=== PATIENT | male | born 1945 | race Caucasian/White ===

== ENCOUNTER → 2021-03-23 14:37 | Outpatient (CLI) | payer MEDICARE, SELFPAY ==
--- NOTE | 2021-03-23 | DI.RAD.S_ITS ---
PROCEDURE: XR CHEST 2V INDICATIONS: Pleurodynia, rib pain left side under armpit, hx of GIST TECHNIQUE: 2 views of the chest were acquired. COMPARISON: None. FINDINGS: Surgical changes and devices: None. Lungs and pleura: Lungs are clear. No pleural effusions or pneumothorax. Mediastinum: Mediastinal contours are normal. Heart size is normal. Bones and chest wall: No suspicious bony abnormalities. Soft tissues appear unremarkable. IMPRESSION: No osseous abnormality. However, if concern persists, CT or bone scan is recommended. Dictated by: Britta Steve M.D. on 03/23/2021 at 15:57 Approved by: Britta Steve M.D. on 03/23/2021 at 15:57
== END ==
PROVIDERS: PCP Internal Medicine; Referring Provider Internal Medicine; Visit Provider Internal Medicine
DX: R07.81 Pleurodynia (principal)
CPT/HCPCS: 71046

== ENCOUNTER 2021-09-24 16:13 | Emergency (ER) | payer MEDICARE, SELFPAY ==
[2021-09-24] VITALS (8 sets, daily range): BP systolic 121–139; BP diastolic 56–63; PULSE 49–65; RESP 9–19; TEMP 36.6; O2SAT 99–100; BMI 18.6
--- NOTE | 2021-09-24 16:32 | DI.RAD.S_ITS ---
PROCEDURE: XR CHEST 1V INDICATIONS: chest pain TECHNIQUE: One view of the chest was acquired. COMPARISON: [facility], CR, XR CHEST 2V, 03/23/2021, 14:51. FINDINGS: Surgical changes and devices: None. Lungs and pleura: Lungs are clear. No pleural effusions or pneumothorax. Mediastinum: Mediastinal contours appear normal. Heart size is normal. Bones and chest wall: No suspicious bony lesions. Overlying soft tissues appear unremarkable. IMPRESSION: No acute cardiopulmonary pathology. Dictated by: Jarred Newman M.D. on 09/24/2021 at 16:54 Approved by: Jarred Newman M.D. on 09/24/2021 at 16:55
[2021-09-24 17:05] LABS: Add Manual Diff / Slide Review NO; Basophils Absolute Auto 0 /uL (0-100); Basophils Percent Auto 0.3 % (0-2); Eosinophils Absolute Auto 100 /uL (0-450); Eosinophils Percent Auto 1.5 % (2-4); Hemoglobin 13.2 g/dL (13.5-17.5); Lymphocytes Absolute Auto 900 /uL (1100-4500); Lymphocytes Percent Auto 17.6 % (25-40); Mean Corpuscular HGB Conc 33.7 % (30-36); Mean Corpuscular Hemoglobin 30.4 PG (26-34); Mean Corpuscular Volume 90.1 fL (80-100); Monocytes Absolute Auto 400 /uL (0-900); Monocytes Percent Auto 8.5 % (3-14); Neutrophils Absolute Auto 3600 /uL (1500-7000); Neutrophils Percent Auto 72.1 % (50-75); Platelet Count 311 X10^3/uL (150-400); Red Blood Cell Count 4.33 X10^6/uL (4.5-5.9); Red Cell Distribution Width 14.2 % (11.6-14.8); White Blood Cell Count 5.1 X10^3/uL (4.5-11.0)
[2021-09-24 17:16] LABS: Alanine Aminotransferase 17 IU/L (<50); Albumin 4.1 g/dL (3.5-5.0); Albumin Globulin Ratio 1.5 (1.0-2.8); Alkaline Phosphatase 80 U/L (38-126); Aspartate Aminotransferase 29 IU/L (17-59); BUN Creatinine Ratio 17.6 (6-22); Bilirubin Total 0.5 mg/dL (0.2-1.3); Blood Urea Nitrogen 21 mg/dL (9-20); COVID19 -Nasal RAPID Negative (Negative); Calcium 8.9 mg/dL (8.4-10.2); Carbon Dioxide 27 mmol/L (22-32); Chloride 105 mmol/L (98-107); Creatine Kinase 59 U/L (55-170); Estimated Glomerular Filt Rate 59.6 mL/min (>60); Globulin 2.7 g/dL (1.7-4.1); Glucose 88 mg/dL (80-110); HEMOLYSIS 17 (0-50); Lipase 191 U/L (23-300); Magnesium 2.2 mg/dL (1.6-2.3); Potassium 4.5 mmol/L (3.4-5.1); Sodium 136 mmol/L (137-145); Total Protein 6.8 g/dL (6.3-8.2)
[2021-09-24 17:26] LABS: Troponin I < 0.012 ng/mL (0.01-0.034)
--- NOTE | 2021-09-24 19:33 | ED.CHESTPAIN ---
HPI - Chest Pain General Chief Complaint: Chest Pain Stated Complaint: HEAVY BREATHING BURNING OF THE CHEST Time Seen by Provider: 09/24/21 19:33 Source: patient Mode of arrival: Ambulatory Limitations: no limitations Limitations: no limitations History of Present Illness HPI narrative: This is a 5-year-old male who comes with complaint of and heaviness in his chest and sensation of labored breathing. He states it is worse when he bends over and gets a burning sensation on the anterior wall. He denies rash or skin changes it is on both sides of the sternum. He denies any wheezing but felt labored. He has had some dry cough and some congestion and states he has been sensitive to dust and seasonal allergies they recently moved into a new house which has a lot of dust from boxes that have been stored for the past 5 years. He had an albuterol but it in 2014 so he did try it. He has not had any nausea vomiting, no new swelling, no issues with bowel movements. He has noted some nocturia but no other urinary changes. He states that his discomfort seems to be a little bit positional. Patient denies any past medical history initially but states he has had ablation x2 for atrial flutter. He is not anticoagulated. He has had prior appendectomy at age 10. 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 He had MRI and CT scans which were negative. He was supposed to have q.6 month surveillance but his last CT was in February. He has been referred to Oncology after moving here from [place] but has not seen them. He denies tobacco, occasional alcohol, no illicit. Related Data Previous Rx's Medication Instructions Recorded albuterol sulfate 90 mcg/actuation 2 puff INHALATION Q4-6H PRN #8.5 g 09/24/21 aerosol inhaler Allergies Allergy/AdvReac Type Severity Reaction Status Date / Time No Known Drug Allergies Allergy Verified 09/24/21 16:38 Review of Systems Review of Systems ROS Unobtainable: All systems reviewed & are unremarkable except as noted in HPI and below Patient History Social History Smoking Status: Never smoker Smoking Status: Never smoker alcohol intake frequency: holidays/special occasions only Substance Use Type: does not use Exam Narrative Exam Narrative: GENERAL: Alert and oriented x three, elderly male in mild distress. HEENT: Head normocephalic, atraumatic, EOMI, pupils reactive, face symmetric, moist mucous membranes NECK: Supple, full range of motion, patient has a circular hyperkeratotic raised lesion on his right posterior neck. Discussed with patient would recommend following up with primary care for Derm for biopsy. CARDIOVASCULAR: Regular rate and rhythm without murmurs, rubs or gallops. Non reproducible chest pain. No erythema or skin changes. RESPIRATORY: Breath sounds equal bilaterally, no wheezes rales or rhonchi. ABDOMEN: Soft, nontender. Nontender. No bruit. Normoactive bowel sounds all 4 quadrants. No guarding or rebound, rigidity, no mass : No CVA tenderness EXTREMITIES: Normal range of motion, no clubbing or edema. Neurovascularly intact. Normal range of motion. NEUROLOGICAL: Cranial nerves II through XII grossly intact. Moving all extremities SKIN: Warm, dry, no petechiae, no rashes or lesions. Initial Vital Signs Initial Vital Signs: Vital Signs Temperature 98 F 09/24/21 16:34 Pulse Rate 61 09/24/21 16:34 Respiratory Rate 17 09/24/21 16:34 Blood Pressure 139/63 09/24/21 16:34 Pulse Oximetry 100 09/24/21 16:34 Scores HEART Score Heart Score history: Slightly Suspicious Heart Score EKG: Non-Specific repolarization disturbance Heart Score Age: > or = 65 years old Heart Score risk factors: No known risk factors Heart Score troponin: < or = to normal limit Heart Score Total: 3 Course Orders Ordered: Discontinued Medications Aspirin (Aspirin 81 Mg Chew Tab) 324 mg PO NOW ONE Stop: 09/24/21 16:33 Last Admin: 09/24/21 16:58 Dose: Not Given Documented by: KARLEY Vital Signs Vital signs: Vital Signs - 8 hr 09/24/21 16:34 09/24/21 18:56 09/24/21 18:57 Temperature 98 F Pulse Rate 61 65 63 Respiratory Rate 17 Blood Pressure 139/63 139/62 Pulse Oximetry 100 99 100 09/24/21 19:00 09/24/21 19:01 09/24/21 19:30 Temperature Pulse Rate 63 59 L 49 L Respiratory Rate 19 11 L 9 L Blood Pressure Pulse Oximetry 100 100 100 09/24/21 19:31 Temperature Pulse Rate 51 L Respiratory Rate 13 Blood Pressure 122/58 L Pulse Oximetry 100 MDM - Chest Pain Lab Data Result diagrams: 09/24/21 16:45 09/24/21 16:45 Labs: Lab Results 09/24/21 09/24/21 09/24/21 Range/Units 16:45 16:45 16:45 WBC 5.1 (4.5-11.0) X10^3/uL RBC 4.33 L (4.5-5.9) X10^6/uL Hgb 13.2 L (13.5-17.5) g/dL Hct 39.0 L (41-53) % MCV 90.1 (80-100) fL MCH 30.4 (26-34) PG MCHC 33.7 (30-36) % RDW 14.2 (11.6-14.8) % Plt Count 311 (150-400) X10^3/uL Neut % (Auto) 72.1 (50-75) % Lymph % (Auto) 17.6 L (25-40) % [place] % (Auto) 8.5 (3-14) % Eos % (Auto) 1.5 L (2-4) % Baso % (Auto) 0.3 (0-2) % Neut # (Auto) 3600 (0586-2855) /uL Lymph # (Auto) 900 L (2899-8290) /uL [place] # (Auto) 400 (0-900) /uL Eos # (Auto) 100 (0-450) /uL Baso # (Auto) 0 (0-100) /uL Sodium 136 L (137-145) mmol/L Potassium 4.5 (3.4-5.1) mmol/L Chloride 105 (98-107) mmol/L Carbon Dioxide 27 (22-32) mmol/L BUN 21 H (9-20) mg/dL Creatinine 1.19 (0.66-1.25) mg/dL Estimated GFR 59.6 L (>60) mL/min BUN/Creatinine Ratio 17.6 (6-22) Glucose 88 (80-110) mg/dL Calcium 8.9 (8.4-10.2) mg/dL Magnesium 2.2 (1.6-2.3) mg/dL Total Bilirubin 0.5 (0.2-1.3) mg/dL AST 29 (17-59) IU/L ALT 17 (<50) IU/L Alkaline Phosphatase 80 (38-126) U/L Total Creatine Kinase 59 (55-170) U/L CK-MB (CK-2) TNP CK-MB (CK-2) Rel Index TNP Troponin I < 0.012 (0.01-0.034) ng/mL Total Protein 6.8 (6.3-8.2) g/dL Albumin 4.1 (3.5-5.0) g/dL Globulin 2.7 (1.7-4.1) g/dL Albumin/Globulin Ratio 1.5 (1.0-2.8) Lipase 191 (23-300) U/L SARS-CoV-2 (PCR) Negative (Negative) 09/24/21 Range/Units 19:00 WBC (4.5-11.0) X10^3/uL RBC (4.5-5.9) X10^6/uL Hgb (13.5-17.5) g/dL Hct (41-53) % MCV (80-100) fL MCH (26-34) PG MCHC (30-36) % RDW (11.6-14.8) % Plt Count (150-400) X10^3/uL Neut % (Auto) (50-75) % Lymph % (Auto) (25-40) % [place] % (Auto) (3-14) % Eos % (Auto) (2-4) % Baso % (Auto) (0-2) % Neut # (Auto) (5196-8950) /uL Lymph # (Auto) (3398-1547) /uL [place] # (Auto) (0-900) /uL Eos # (Auto) (0-450) /uL Baso # (Auto) (0-100) /uL Sodium (137-145) mmol/L Potassium (3.4-5.1) mmol/L Chloride (98-107) mmol/L Carbon Dioxide (22-32) mmol/L BUN (9-20) mg/dL Creatinine (0.66-1.25) mg/dL Estimated GFR (>60) mL/min BUN/Creatinine Ratio (6-22) Glucose (80-110) mg/dL Calcium (8.4-10.2) mg/dL Magnesium (1.6-2.3) mg/dL Total Bilirubin (0.2-1.3) mg/dL AST (17-59) IU/L ALT (<50) IU/L Alkaline Phosphatase (38-126) U/L Total Creatine Kinase (55-170) U/L CK-MB (CK-2) CK-MB (CK-2) Rel Index Troponin I < 0.012 (0.01-0.034) ng/mL Total Protein (6.3-8.2) g/dL Albumin (3.5-5.0) g/dL Globulin (1.7-4.1) g/dL Albumin/Globulin Ratio (1.0-2.8) Lipase (23-300) U/L SARS-CoV-2 (PCR) (Negative) Imaging Data Chest x-ray: Radiologist's Impression: [address] [address] XRay Report Signed Patient: Oj Mcknight MR#: [id number] : 1945 Acct:[id number] Age/Sex: 75 / M Date of Service: 09/24/21 Loc: ED Accession Number: [id number] ?? Procedure: XR chest 1V Ordering Provider: Leonie Harkins D.O. PROCEDURE:? XR CHEST 1V ? INDICATIONS:? chest pain ? TECHNIQUE:? One view of the chest was acquired.? ? COMPARISON:? [facility], , XR CHEST 2V, 03/23/2021, 14:51. ? FINDINGS:? ? Surgical changes and devices:? None.? ? Lungs and pleura:? Lungs are clear.? No pleural effusions or pneumothorax.? ? Mediastinum:? Mediastinal contours appear normal.? Heart size is normal.? ? Bones and chest wall:? No suspicious bony lesions.? Overlying soft tissues appear unremarkable.? ? IMPRESSION:? No acute cardiopulmonary pathology. ? ? Dictated by: Jarred Newman M.D. on 09/24/2021 at 16:54 ? ? Approved by: Jarred Newman M.D. on 09/24/2021 at 16:55?? ECG Data Attestation: I personally reviewed and interpreted this ECG as follows: Prior ECG tracings: not available for review Interpretation: Sinus bradycardia rate of 55, GA 168, QRS of 1 tendon QTC of 409, right axis with incomplete right bundle branch. No acute ST elevation depression appreciated. EKG 2 shows sinus bradycardia the rate of 48, GA 160, QRS of 108 QTC of 402, no acute ST elevation depression appreciated. Patient's EKG appears similar to earlier from today. MDM Narrative Medical decision making narrative: This is a 75-year-old male comes emergency department complaint of chest pain that he describes more as labored breathing. Patient has had dust exposure which he states causes symptoms at times. He had run out of his inhaler. He is not wheezy on exam but I am happy to refill. He has a right bundle-branch block and after discussion patient has had ablation x2 with no other obvious cardiac abnormalities. He has no prior EKGs for comparison but troponin is negative x2 with a mild anemia but no other major lab changes. Patient does note that he had a tumor removed from what sounds like his stomach he was not started on oral chemotherapy but has not followed up with his surveillance since February. Patient was given referral to Oncology as well as local primary care. 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 Discharge Plan Departure Patient Disposition: Home Clinical Impression: Atypical chest pain Instructions: DI for Atypical Chest Pain Activity Restrictions/Additional Instructions: Follow-up with primary care. Referral is included below if you are having difficulty finding an option you can call [phone] for primary care options. Referral is also included for Dr. Rosas with oncology. It is important that you get regular surveillance with your imaging for your prior tumor removal. The lesion on the back of your neck would benefit from being biopsied I believe. Can either follow-up with dermatology locally or primary care is included below. Also included is albuterol prescription. This was sent to [facility] [place]. Please return for fevers, new or worsening chest pain, shortness of breath, lightheadedness or passing out, persistent vomiting, persistent palpitations or fast heartbeat, new swelling in her extremities or other new or concerning symptoms. Prescriptions: New albuterol sulfate 90 mcg/actuation HFA aerosol inhaler 2 puff inhalation Q4-6H PRN (Reason: shortness of breath or wheezing) Qty: 8.5 0RF Referrals: Sunday Stauffer MD [Primary Care Provider] - Ravinder Rosas MD [Physician] - Steven Walters MD [Physician] -
[2021-09-24 19:35] LABS: Troponin I < 0.012 ng/mL (0.01-0.034)
== END 2021-09-24 20:20 | disposition home or self-care (01) ==
PROVIDERS: Emergency Medicine; Emergency Provider Emergency Medicine; PCP Internal Medicine
DX: R07.89 Other chest pain (principal); Z20.822 Contact with and (suspected) exposure to COVID-19
CPT/HCPCS: 36415; 71045; 80053; 82550; 83690; 83735; 84484; 85025; 87635; 93005; 93010; 99284; C9803

== ENCOUNTER → 2022-06-11 07:34 | Outpatient (CLI) | payer MEDICARE, SELFPAY ==
[2022-06-11 09:29] LABS: Add Manual Diff / Slide Review NO; Basophils Absolute Auto 0 /uL (0-100); Basophils Percent Auto 0.4 % (0-2); Eosinophils Absolute Auto 100 /uL (0-450); Eosinophils Percent Auto 1.8 % (2-4); Hematocrit 39.7 % (41-53); Hemoglobin 13.2 g/dL (13.5-17.5); Lymphocytes Absolute Auto 1000 /uL (1100-4500); Lymphocytes Percent Auto 22.4 % (25-40); Mean Corpuscular HGB Conc 33.3 % (30-36); Mean Corpuscular Hemoglobin 29.8 PG (26-34); Mean Corpuscular Volume 89.6 fL (80-100); Monocytes Absolute Auto 400 /uL (0-900); Monocytes Percent Auto 8.8 % (3-14); Neutrophils Absolute Auto 3000 /uL (1500-7000); Neutrophils Percent Auto 66.6 % (50-75); Platelet Count 316 X10^3/uL (150-400); Red Blood Cell Count 4.43 X10^6/uL (4.5-5.9); Red Cell Distribution Width 14.6 % (11.6-14.8); White Blood Cell Count 4.4 X10^3/uL (4.5-11.0)
[2022-06-11 09:30] LABS: Hemoglobin A1C% w Est Avg Glu 5.4 % (4.0-6.0)
[2022-06-11 10:16] LABS: BUN Creatinine Ratio 18.9 (6-22); Blood Urea Nitrogen 18 mg/dL (9-20); Calcium 8.8 mg/dL (8.4-10.2); Carbon Dioxide 32 mmol/L (22-32); Chloride 102 mmol/L (98-107); Cholesterol 162 mg/dL (140-199); Estimated Glomerular Filt Rate > 60 mL/min (>60); Glucose 93 mg/dL (80-110); HDL Cholesterol 62 mg/dL (40-60); HEMOLYSIS < 15 (0-50); LDL Cholesterol Calculated 92 mg/dL (<100); Potassium 4.1 mmol/L (3.4-5.1); Sodium 140 mmol/L (137-145); Triglycerides 41 mg/dL (35-150)
[2022-06-11 10:49] LABS: TSH w/ Reflex to FT4 3.54 uIU/mL (0.47-4.68)
[2022-06-11 11:06] LABS: Vitamin B12 342 pg/mL (239-931)
== END ==
PROVIDERS: PCP Family Medicine; Referring Provider Family Medicine; Visit Provider Family Medicine
DX: Z00.00 Encounter for general adult medical examination without abnormal findings (principal); G62.9 Polyneuropathy, unspecified; Z91.89 Other specified personal risk factors, not elsewhere classified; R73.01 Impaired fasting glucose
CPT/HCPCS: 36415; 80048; 80061; 82607; 83036; 84443; 85025

== ENCOUNTER 2022-12-25 10:54 | Emergency (ER) | payer MEDICARE, SELFPAY ==
[2022-12-25] VITALS (20 sets, daily range): BP systolic 115–148; BP diastolic 58–76; PULSE 40–63; RESP 17–34; TEMP 36.6; O2SAT 98–100; BMI 18.6
--- NOTE | 2022-12-25 11:05 | DI.RAD.S_ITS ---
PROCEDURE: XR CHEST 1V INDICATIONS: chest pain TECHNIQUE: One view of the chest was acquired. COMPARISON: [facility], CR, XR CHEST 1V, 09/24/2021, 16:36. [facility], CR, XR CHEST 2V, 03/23/2021, 14:51. FINDINGS: Surgical changes and devices: None. Lungs and pleura: Lungs are clear. No pleural effusions or pneumothorax. Mediastinum: Mediastinal contours appear normal. Heart size is normal. Bones and chest wall: No suspicious bony lesions. Overlying soft tissues appear unremarkable. IMPRESSION: No acute cardiopulmonary process. Dictated by: Gualberto Valera M.D. on 12/25/2022 at 11:32 Approved by: Gualberto Valera M.D. on 12/25/2022 at 11:33
[2022-12-25 11:18] LABS: Add Manual Diff / Slide Review NO; Basophils Absolute Auto 0 /uL (0-100); Basophils Percent Auto 0.5 % (0-2); Eosinophils Absolute Auto 100 /uL (0-450); Eosinophils Percent Auto 1.3 % (2-4); Hematocrit 39.3 % (41-53); Hemoglobin 13.6 g/dL (13.5-17.5); Lymphocytes Absolute Auto 800 /uL (1100-4500); Lymphocytes Percent Auto 21.5 % (25-40); Mean Corpuscular HGB Conc 34.5 % (30-36); Mean Corpuscular Hemoglobin 31.2 PG (26-34); Mean Corpuscular Volume 90.2 fL (80-100); Monocytes Absolute Auto 400 /uL (0-900); Monocytes Percent Auto 10.2 % (3-14); Neutrophils Absolute Auto 2600 /uL (1500-7000); Neutrophils Percent Auto 66.5 % (50-75); Platelet Count 325 X10^3/uL (150-400); Red Blood Cell Count 4.36 X10^6/uL (4.5-5.9); Red Cell Distribution Width 13.6 % (11.6-14.8); White Blood Cell Count 3.9 X10^3/uL (4.5-11.0)
[2022-12-25 11:25] LABS: INR 1.1 (0.9-1.3); Prothrombin Time 12.4 SECONDS (10.1-12.7)
[2022-12-25 11:28] LABS: PTT Partial Thromboplastin Tim 36 SECONDS (26-36)
[2022-12-25 11:30] LABS: Alanine Aminotransferase 18 IU/L (<50); Albumin 4.1 g/dL (3.5-5.0); Albumin Globulin Ratio 1.6 (1.0-2.8); Alkaline Phosphatase 81 U/L (38-126); Aspartate Aminotransferase 28 IU/L (17-59); BUN Creatinine Ratio 12.1 (6-22); Bilirubin Total 0.6 mg/dL (0.2-1.3); Blood Urea Nitrogen 11 mg/dL (9-20); Calcium 8.6 mg/dL (8.4-10.2); Carbon Dioxide 29 mmol/L (22-32); Chloride 102 mmol/L (98-107); Creatine Kinase 64 U/L (55-170); Estimated Glomerular Filt Rate > 60 mL/min (>60); Globulin 2.6 g/dL (1.7-4.1); Glucose 83 mg/dL (80-110); HEMOLYSIS 18 (0-50); Lipase 168 U/L (23-300); Magnesium 2.3 mg/dL (1.6-2.3); Sodium 135 mmol/L (137-145); Total Protein 6.7 g/dL (6.3-8.2)
[2022-12-25 11:40] LABS: Troponin I < 0.012 ng/mL (0.01-0.034)
--- NOTE | 2022-12-25 11:47 | ED_ITS ---
HPI - Arrhythmia/Palpitations General Chief Complaint: Arrhythmia/Palpitations Stated Complaint: low heart rate Time Seen by Provider: 12/25/22 11:30 Source: patient Mode of arrival: Ambulatory History of Present Illness HPI narrative: Patient sent over here by primary care office for symptomatic bradycardia. Patient was in the office for follow up regarding physical therapy for his neck pain and lower back pain. During exam and vital signs he noted to have very low heart rate of in the 40s. His baseline is usually in the 50s and 60s. He is not on any beta-blockers or antiarrhythmics. Not being treated for thyroid disease. Denies any chest pain or dyspnea. He is had 3 episodes of near syncope in the last month. He did not think much of the symptoms and was not concerned to go see a primary care for this problem. Patient denies any recent illness. No black or bloody stools. He did see a word processing operator years ago for cardiac ablation for atrial fibrillation has been doing well since 2013. Related Data Home Medications Medication Instructions Recorded Confirmed cholecalciferol (vitamin D3) PO 06/05/22 12/25/22 Previous Rx's Medication Instructions Recorded albuterol sulfate 90 mcg/actuation 2 puff inhalation Q4-6H PRN 09/24/21 aerosol inhaler shortness of breath or wheezing #8.5 grams Allergies Allergy/AdvReac Type Severity Reaction Status Date / Time gluten AdvReac Mild runnynose Verified 12/25/22 11:06 whey AdvReac Mild runnynose Verified 12/25/22 11:06 peanuts Allergy Severe Anaphylaxis Uncoded 12/25/22 10:11 Review of Systems Review of Systems Narrative: GENERAL: negative chills, fatigue, malaise, fever, sweats. HEENT: negative sinus pain, ear pain, sore throat RESPIRATORY: negative dyspnea, cough CARDIOVASCULAR: negative chest pain, palpitations GASTROINTESTINAL: negative nausea, vomiting, abdominal pain : negative dysuria, frequency, hematuria MUSCULOSKELETAL: negative muscle or bony pain SKIN: negative rash, skin lesions NEUROLOGIC: negative weakness, numbness, positive lightheadedness, positive near-syncope ROS Unobtainable: All systems reviewed & are unremarkable except as noted in HPI and below Patient History Medical History Allergies (~1946) Cardiac arrhythmia (~2004) Chicken pox (~1952) Fecal incontinence (~2004) GI cancer (~2017) Herpes (~1980) Hypothyroidism (~2001) Low testosterone (~2003) Measles (~1953) Mumps (~1952) Osteopenia (~2007) Paroxysmal A-fib Peripheral neuropathy Sleep apnea (~2011) Surgical History Anesthesia Basal cell carcinoma (~1992) Gastrointestinal stromal tumor (GIST) (~11/14/20) History of appendectomy (~02/1956) History of cardiac radiofrequency ablation History of umbilical hernia repair Family History Mother Cancer Diabetes mellitus Father Diabetes mellitus Congestive heart failure Stroke Grandfather Diabetes mellitus Grandfather Stroke Grandmother Hypertension Social History Smoking Status: Current every day smoker Smoking Status: Current every day smoker alcohol intake frequency: holidays/special occasions only Substance Use Type: does not use Exam Narrative Exam Narrative: GENERAL: in no distress, not toxic not dyspneic HEAD: Normocephalic. EYES: Pupils equal round ENT: Mucous membranes moist. NECK: Trachea midline. CARDIOVASCULAR: Bradycardia with Regular rate and rhythm RESPIRATORY: Clear to auscultation. Breath sounds equal bilaterally. No wheezes, rales, or rhonchi. GASTROINTESTINAL: Abdomen soft, non-tender EXTREMITIES: No gross deformities. BACK: No flank tenderness. NEURO: AOx4. SKIN: Warm and dry PSYCH: Not anxious, is cooperative Initial Vital Signs Initial Vital Signs: Vital Signs Temperature 97.8 F 12/25/22 10:55 Pulse Rate 54 L 12/25/22 10:55 Respiratory Rate 18 12/25/22 10:55 Blood Pressure 146/63 H 12/25/22 10:55 Pulse Oximetry 98 12/25/22 10:55 Oxygen Delivery Method Room Air 12/25/22 10:55 Course Orders Ordered: ED Orders 12/25/22 11:05 XR chest 1V Stat EKG-12 Lead Stat 12/25/22 11:06 Complete Blood Count AUTO DIFF Stat Comprehensive Metabolic Panel Stat Lipase Stat Magnesium Stat PTT Partial Thromboplastin Randall Stat Prothrombin Time INR Stat TSH [Thyroid Stimulating Hormone] Stat Troponin & CK Cardiac Panel Stat 12/25/22 15:40 EC echo doppler complete Stat Vital Signs Vital signs: Vital Signs - 8 hr 12/25/22 10:55 12/25/22 11:01 12/25/22 11:15 Temperature 97.8 F Pulse Rate 54 L 47 L 42 L Respiratory Rate 18 18 23 Blood Pressure 146/63 H Pulse Oximetry 98 100 100 Oxygen Delivery Method Room Air Room Air 12/25/22 11:15 12/25/22 11:30 12/25/22 11:30 Temperature Pulse Rate 41 L Respiratory Rate 23 Blood Pressure 148/65 H 118/60 Pulse Oximetry 100 Oxygen Delivery Method Room Air 12/25/22 11:45 12/25/22 11:45 12/25/22 12:00 Temperature Pulse Rate 40 L Respiratory Rate 21 Blood Pressure 137/60 125/58 L Pulse Oximetry 100 Oxygen Delivery Method 12/25/22 12:00 12/25/22 12:15 12/25/22 12:15 Temperature Pulse Rate 42 L 40 L Respiratory Rate 17 24 Blood Pressure 129/58 L Pulse Oximetry 99 100 Oxygen Delivery Method Room Air 12/25/22 12:30 12/25/22 12:30 12/25/22 12:46 Temperature Pulse Rate 49 L 41 L Respiratory Rate 19 22 Blood Pressure 124/61 Pulse Oximetry 100 100 Oxygen Delivery Method 12/25/22 12:46 12/25/22 13:00 12/25/22 13:01 Temperature Pulse Rate 46 L 46 L Respiratory Rate 27 H 28 H Blood Pressure 121/76 Pulse Oximetry 100 100 Oxygen Delivery Method Room Air 12/25/22 13:01 12/25/22 13:30 12/25/22 14:00 Temperature Pulse Rate 54 L 58 L Respiratory Rate 32 H 29 H Blood Pressure 130/62 Pulse Oximetry Oxygen Delivery Method 12/25/22 14:30 12/25/22 15:00 12/25/22 15:21 Temperature Pulse Rate 60 53 L 56 L Respiratory Rate 34 H 27 H 28 H Blood Pressure Pulse Oximetry Oxygen Delivery Method 12/25/22 15:21 12/25/22 15:30 12/25/22 16:00 Temperature Pulse Rate 63 52 L Respiratory Rate 26 H 21 Blood Pressure 115/59 L Pulse Oximetry Oxygen Delivery Method 12/25/22 16:30 Temperature Pulse Rate 58 L Respiratory Rate Blood Pressure Pulse Oximetry Oxygen Delivery Method MDM - Arrhythmia/Palpitations Lab Data 12/25/22 11:06 12/25/22 11:06 Labs: Lab Results 12/25/22 12/25/22 12/25/22 Range/Units 11:06 11:06 11:06 WBC 3.9 L (4.5-11.0) X10^3/uL RBC 4.36 L (4.5-5.9) X10^6/uL Hgb 13.6 (13.5-17.5) g/dL Hct 39.3 L (41-53) % MCV 90.2 (80-100) fL MCH 31.2 (26-34) PG MCHC 34.5 (30-36) % RDW 13.6 (11.6-14.8) % Plt Count 325 (150-400) X10^3/uL Neut % (Auto) 66.5 (50-75) % Lymph % (Auto) 21.5 L (25-40) % [place] % (Auto) 10.2 (3-14) % Eos % (Auto) 1.3 L (2-4) % Baso % (Auto) 0.5 (0-2) % Neut # (Auto) 2600 (4796-7685) /uL Lymph # (Auto) 800 L (2701-4315) /uL [place] # (Auto) 400 (0-900) /uL Eos # (Auto) 100 (0-450) /uL Baso # (Auto) 0 (0-100) /uL PT 12.4 (10.1-12.7) SECONDS INR 1.1 (0.9-1.3) APTT 36 (26-36) SECONDS Sodium 135 L (137-145) mmol/L Potassium 4.0 (3.4-5.1) mmol/L Chloride 102 (98-107) mmol/L Carbon Dioxide 29 (22-32) mmol/L BUN 11 (9-20) mg/dL Creatinine 0.91 (0.66-1.25) mg/dL Estimated GFR > 60 (>60) mL/min BUN/Creatinine Ratio 12.1 (6-22) Glucose 83 (80-110) mg/dL Calcium 8.6 (8.4-10.2) mg/dL Magnesium 2.3 (1.6-2.3) mg/dL Total Bilirubin 0.6 (0.2-1.3) mg/dL AST 28 (17-59) IU/L ALT 18 (<50) IU/L Alkaline Phosphatase 81 (38-126) U/L Total Creatine Kinase 64 (55-170) U/L CK-MB (CK-2) TNP CK-MB (CK-2) Rel Index TNP Troponin I < 0.012 (0.01-0.034) ng/mL Total Protein 6.7 (6.3-8.2) g/dL Albumin 4.1 (3.5-5.0) g/dL Globulin 2.6 (1.7-4.1) g/dL Albumin/Globulin Ratio 1.6 (1.0-2.8) Lipase 168 (23-300) U/L TSH (0.47-4.68) uIU/mL 12/25/22 Range/Units 11:06 WBC (4.5-11.0) X10^3/uL RBC (4.5-5.9) X10^6/uL Hgb (13.5-17.5) g/dL Hct (41-53) % MCV (80-100) fL MCH (26-34) PG MCHC (30-36) % RDW (11.6-14.8) % Plt Count (150-400) X10^3/uL Neut % (Auto) (50-75) % Lymph % (Auto) (25-40) % [place] % (Auto) (3-14) % Eos % (Auto) (2-4) % Baso % (Auto) (0-2) % Neut # (Auto) (8190-4753) /uL Lymph # (Auto) (6423-0686) /uL [place] # (Auto) (0-900) /uL Eos # (Auto) (0-450) /uL Baso # (Auto) (0-100) /uL PT (10.1-12.7) SECONDS INR (0.9-1.3) APTT (26-36) SECONDS Sodium (137-145) mmol/L Potassium (3.4-5.1) mmol/L Chloride (98-107) mmol/L Carbon Dioxide (22-32) mmol/L BUN (9-20) mg/dL Creatinine (0.66-1.25) mg/dL Estimated GFR (>60) mL/min BUN/Creatinine Ratio (6-22) Glucose (80-110) mg/dL Calcium (8.4-10.2) mg/dL Magnesium (1.6-2.3) mg/dL Total Bilirubin (0.2-1.3) mg/dL AST (17-59) IU/L ALT (<50) IU/L Alkaline Phosphatase (38-126) U/L Total Creatine Kinase (55-170) U/L CK-MB (CK-2) CK-MB (CK-2) Rel Index Troponin I (0.01-0.034) ng/mL Total Protein (6.3-8.2) g/dL Albumin (3.5-5.0) g/dL Globulin (1.7-4.1) g/dL Albumin/Globulin Ratio (1.0-2.8) Lipase (23-300) U/L TSH 2.17 (0.47-4.68) uIU/mL Imaging Data Chest x-ray: Radiologist's Impresson: [place] [id number] XRay Report Signed Patient: Oj Mcknight MR#: [id number] : 1945 Acct:[id number] Age/Sex: 77 / M Date of Service: 12/25/22 Loc: Accession Number: [id number] ?? Procedure: XR chest 1V Ordering Provider: Franco Pereira MD PROCEDURE:? XR CHEST 1V ? INDICATIONS:? chest pain ? TECHNIQUE:? One view of the chest was acquired.? ? COMPARISON:? [facility], CR, XR CHEST 1V, 09/24/2021, 16:36.? [facility], CR, XR CHEST 2V, 03/23/2021, 14:51. ? FINDINGS:? ? Surgical changes and devices:? None.? ? Lungs and pleura:? Lungs are clear.? No pleural effusions or pneumothorax.? ? Mediastinum:? Mediastinal contours appear normal.? Heart size is normal.? ? Bones and chest wall:? No suspicious bony lesions.? Overlying soft tissues ap pear unremarkable.? ? IMPRESSION:? No acute cardiopulmonary process. ? ? ? Dictated by: Gualberto Valera M.D. on 12/25/2022 at 11:32 ? ? Approved by: Gualberto Valera M.D. on 12/25/2022 at 11:33 ? [facility] Narrative Medical decision making narrative: Patient sent over here by primary care office for symptomatic bradycardia. Patient was in the office for follow up regarding physical therapy for his neck pain and lower back pain. During exam and vital signs he noted to have very low heart rate of in the 40s. His baseline is usually in the 50s and 60s. He is not on any beta-blockers or antiarrhythmics. Not being treated for thyroid d isease. Denies any chest pain or dyspnea. He is had 3 episodes of near syncope in the last month. He did not think much of the symptoms and was not concerned to go see a primary care for this problem. Patient denies any recent illness. No black or bloody stools. He did see a word processing operator years ago for cardiac ablation for atrial fibrillation has been doing well since 2013. After history and exam CBC CMP troponin EKG TSH chest x-ray [facility] CC: Near-syncope Complicating co-morbidities: History atrial fibrillation Data collected from: Patient and Medical records reviewed: Office visit with primary care this morning just prior to arrival Differential considered: Includes but not limited to symptomatic bradycardia arrhythmia valvular disease electrolyte imbalance hypothyroidism Exam documented above, pertinent findings include: Bradycardia Lab Test results independently reviewed as above. Pertinent findings: WBC 3.9 hemoglobin 13.6 sodium 135 potassium 4.0 glucose 83 troponin less than 0.012 magnesium 2.3, TSH 2.17 Independently reviewed EKG sinus bradycardia, rate 40 Imaging studies independently reviewed: Chest x-ray no acute finding Consultations: 1:45 p.m.. Spoke with cardiology, dr cavazos, recommends patient to be transferred for pacemaker. 3:45 p.m.. I spoke with [facility] Cardiology Dr. Charles, EP Cardio, he is reviewed patient's results patient heart rate now is 61. He is not symptomatic at this time. Appropriate to discharge him home and his office will call patient to for follow-up. Get echocardiogram here. Primary care to get a Zio patch. 4:45 p.m.. I spoke with nurse with primary care office and she will inform primary care provider to order 7 day Zio patch Treatments: None indicated at this time Re-evaluations: 2:00 p.m.. I updated patient my discussion with Cardiology for transfer for pacemaker. and patient agree for this plan and transferred today. 4:50 p.m.. Updated patient my discussion with Dr. Charles, at this time patient is pleased that he will not need to be admitted. He is comfortable with discharge home. He is not had any symptoms here. Plan in place for follow up has been started. Return precautions reviewed with him. He desires discharge home. Discussion: Appropriate for discharge home. Patient is asymptomatic at this time. Was not dizzy lightheaded during course of stay here. His heart rate is at baseline. He is actually at 61 at time of discharge. He is pleased with plan and follow up with Cardiology at [facility]. I spoke with primary care office to schedule a Zio patch. I spoke with EP Cardiology Dr. Charles for follow up. Return precautions reviewed with him. He desires discharge home. The preventative maintenance technician states she is unable to transmit the echocardiogram tonight to be red but it will be done in the morning. This will not guide changer. Diagnosis: Symptomatic bradycardia Discharge Plan Departure Patient Disposition: Home Clinical Impression: Symptomatic bradycardia Instructions: DI for Arrhythmias, DI for Bradycardia Activity Restrictions/Additional Instructions: Return if worse if any questions or concerns or if any dizziness or feel like you are going to faint. [facility] Services will be calling you tomorrow to schedule appointment for follow up regarding your slow h eart rate. I have contacted your family doctor office to schedule you for a 7 day Zio patch. No medications are indicated at this time. Return if worse if any questions or concerns. Prescriptions: No Action cholecalciferol (vitamin D3) PO albuterol sulfate 90 mcg/actuation HFA aerosol inhaler 2 puff inhalation Q4-6H PRN (Reason: shortness of breath or wheezing) Qty: 8.5 0RF Referrals: Paul Charles MD [Physician] - Nyasia An DO [Primary Care Provider] - Stand Alone Forms: Patient Portal/API
[2022-12-25 12:31] LABS: Thyroid Stimulating Hormone 2.17 uIU/mL (0.47-4.68)
--- NOTE | 2022-12-25 15:40 | DI.ECHO.S_ITS ---
[facility]---------+ [facility] +---------+ : : [address] : : : : [id number] : : : : Phone: [phone]+ Echocardiogram Report + + :Name: MARCELINA PEPPER Study Date: 12/25/2022 Height: 74 in : :[facility] ReadingLocation: Weight: 145 lb : : Gender: Male BSA: 1.9 m2 : :: 1945 Age: 77 yrs BP: 115/59 mmHg: :Reason For Study: Bradycardia : :Ordering Physician: DANN, : :DENISE Performed By: Mkai Rollins : :Referring: DENISE QUIGLEY : + + Interpretation Summary 1) Normal left ventricular thickness, size, wall motion, and systolic function (EF 60-65%). 2) Normal right ventricular size and function. 3) No significant valvular abnormalities. 4) No prior Echo available for comparison. Procedure: A two-dimensional transthoracic echocardiogram with color flow and Doppler was performed. The study quality was technically good. There is no prior echocardiogram noted for this patient. The patient was in sinus bradycardia with heart rates between 48-60 bpm during the exam. Left Ventricle: The left ventricle is normal in size and wall thickness. The ejection fraction is estimated to be 60-65%. Left ventricular systolic function appears normal without focal wall motion abnormalities. Diastolic parameters suggest probable normal left ventricular diastolic function and normal filling pressures. Right Ventricle: The right ventricle is normal in size and function. Atria: The left atrial size is normal. Right atrial size is normal. There is no Doppler evidence for an interatrial shunt. Mitral Valve: The mitral valve is normal in structure and function. There is mild mitral regurgitation. Aortic Valve: The aortic valve is trileaflet. The aortic valve opens well. There is no aortic valve stenosis. No aortic regurgitation is present. Tricuspid Valve: The tricuspid valve is normal in structure and function. There is mild tricuspid regurgitation. Pulmonary artery pressures cannot be estimated because of the lack of a measurable TR jet velocity but the IVC suggests a CVP of around 8 mmHg. Pulmonic Valve: The pulmonic valve leaflets are thin and pliable; valve motion is normal. There is mild pulmonic regurgitation. Great Vessels: The aortic root is normal size. The dimensions of the ascending aorta are normal. The IVC is dilated (diameter is greater than 2.1 cm) yet it collapses greater than 50% with a sniff. This suggests a right atrial pressure of 8 mm Hg. Pericardium/ Pleura There is no pericardial effusion. There is no pleural effusion. MMode/2D Measurements & Calculations LVIDd: 5.0 cm LVOT diam: 2.4 cm LVIDs: 3.2 cm Ao root diam: 3.9 cm FS: 36.1 % asc Aorta Diam: 3.7 cm EPSS: 0.30 cm Ao Arch Diam (Prox Trans): 3.1 cm IVSd: 0.67 cm LVPWd: 0.69 cm LV river. diameter/BSA (cm/m^2): 2.6 LV sys. diameter/BSA (cm/m^2): 1.7 LA A2 area: 21.0 cm2 RA long axis: 4.8 cm LA A4 area: 15.0 cm2 RA area: 16.8 cm2 LA length (vol): 4.8 cm RA vol: 50.1 ml LA vol: 56.2 ml RA : 26.4 ml/m2 LA vol index: 29.7 ml/m2 IVC diam: 2.8 cm RVD1 (basal): 3.8 cm RVD2 (mid): 3.6 cm TAPSE: 2.0 cm Doppler Measurements & Calculations Ao V2 max: 130.4 cm/sec LVOT Max Miles: 136.1 cm/sec Ao V2 mean: 97.5 cm/sec LV V1 max P.4 mmHg Ao max P.8 mmHg LV V1 VTI: 28.0 cm Ao mean P.0 mmHg CARMELLA(I,D): 4.4 cm2 Ao V2 VTI: 29.7 cm CARMELLA(V,D): 4.8 cm2 sev ratio: 0.94 CARMELLA indexed to BSA (cm^2/m^2): 2.3 MV E max miles: 91.2 cm/sec PA V2 max: 84.9 cm/sec MV A max miles: 85.8 cm/sec PA V2 mean: 63.2 cm/sec MV E/A: 1.1 PA mean P.7 mmHg Med Peak E' Miles: 10.3 cm/sec PA pr(Accel): 25.9 mmHg E/E' med: 8.8 Lat Peak E' Miles: 9.8 cm/sec E/E' lat: 9.3 E/e' average: 9.0 MV dec time: 0.21 sec SV(LVOT): 129.8 ml Reading Physician:09:05 AM
== END 2022-12-25 17:00 | disposition home or self-care (01) ==
PROVIDERS: Emergency Provider Emergency Medicine; PCP Family Medicine
DX: R00.1 Bradycardia, unspecified (principal); R07.9 Chest pain, unspecified
CPT/HCPCS: 36415; 71045; 80053; 82550; 83690; 83735; 84443; 84484; 85025; 85610; 85730; 93005; 93306; 99284

== ENCOUNTER → 2023-01-16 13:47 | Outpatient (CLI) | payer MEDICARE, SELFPAY | PROVIDERS: PCP Family Medicine; Referring Provider Nurse Practitioner Family; Visit Provider Nurse Practitioner Family | DX: R00.1 Bradycardia, unspecified (principal) | CPT/HCPCS: 93242 ==

== ENCOUNTER → 2023-06-26 15:11 | Outpatient (CLI) | payer MEDICARE, SELFPAY ==
--- NOTE | 2023-06-26 15:13 | DI.MRI.S_ITS ---
PROCEDURE: MR ABDOMEN WO/W CON INDICATIONS: f/u on Stromal Tumor RLQ TECHNIQUE: Coronal HASTE, axial 2D FLASH in- and [id number]; axial breath-hold T2 FSE. Dynamic axial VIBE during the administration of contrast; post-contrast coronal VIBE or 2D FLASH with fat saturation from the hepatic dome to the iliac crests. Optional diffusion weighted imaging and ADC may be performed. COMPARISON: [facility], CR, XR CHEST 1V, 12/25/2022, 11:09. FINDINGS: Image quality: Diagnostic. Lung bases: No basal pleural effusions. Heart size is normal. Liver: Small cyst in the left lobe of the liver. Gallbladder: Gallstone measuring 1.2 cm. Biliary tree: No dilation. Pancreas: No ductal dilation. Spleen: Normal size. Adrenal glands: No adrenal nodules. Kidneys: No hydronephrosis. No solid mass. No complex renal cyst which requires follow up, per consensus guidelines. Benign left renal cyst measuring 3.4 cm. Nodes and vessels: No retroperitoneal or mesenteric adenopathy by size criteria. Aorta and inferior vena cava are normal in size. Bowel and peritoneum: Normal colonic caliber. No free fluid. Bones and soft tissues: No ventral hernias. Asymmetric increased DWI signal in the left iliac wing partially visualized. IMPRESSION: 1. No mass identified. No adenopathy. 2. Gallstone. 3. Abnormal signal in the left iliac wing partially visualized. Difficult to exclude osseous lesion. Artifact is a possibility given its location at the edge of the field of view. -CT abdomen pelvis with IV contrast could be performed for further evaluation. Dictated by: Manny Manning M.D. on 06/26/2023 at 20:45 Approved by: Manny Manning M.D. on 06/26/2023 at 20:56
== END ==
PROVIDERS: PCP Family Medicine; Referring Provider Family Medicine; Visit Provider Family Medicine
DX: K80.20 Calculus of gallbladder without cholecystitis without obstruction (principal); R19.00 Intra-abdominal and pelvic swelling, mass and lump, unspecified site; K76.89 Other specified diseases of liver; N20.0 Calculus of kidney
CPT/HCPCS: 74183; A9579

== ENCOUNTER → 2023-07-01 14:40 | Outpatient (CLI) | payer MEDICARE, SELFPAY ==
[2023-07-01 15:37] LABS: Add Manual Diff / Slide Review NO; Basophils Absolute Auto 0 /uL (0-100); Basophils Percent Auto 0.4 % (0-2); Eosinophils Absolute Auto 0 /uL (0-450); Eosinophils Percent Auto 0.3 % (2-4); Hematocrit 41.2 % (41-53); Hemoglobin 13.7 g/dL (13.5-17.5); Lymphocytes Absolute Auto 800 /uL (1100-4500); Lymphocytes Percent Auto 12.7 % (25-40); Mean Corpuscular HGB Conc 33.2 % (30-36); Mean Corpuscular Hemoglobin 30.1 PG (26-34); Mean Corpuscular Volume 90.6 fL (80-100); Monocytes Absolute Auto 500 /uL (0-900); Monocytes Percent Auto 7.2 % (3-14); Neutrophils Absolute Auto 5100 /uL (1500-7000); Neutrophils Percent Auto 79.4 % (50-75); Platelet Count 356 X10^3/uL (150-400); Red Blood Cell Count 4.55 X10^6/uL (4.5-5.9); Red Cell Distribution Width 14.1 % (11.6-14.8); White Blood Cell Count 6.4 X10^3/uL (4.5-11.0)
[2023-07-01 15:57] LABS: BUN Creatinine Ratio 17.2 (6-22); Blood Urea Nitrogen 15 mg/dL (9-20); Calcium 9.5 mg/dL (8.4-10.2); Carbon Dioxide 30 mmol/L (22-32); Chloride 100 mmol/L (98-107); Estimated Glomerular Filt Rate > 60 mL/min (>60); Glucose 83 mg/dL (80-110); HEMOLYSIS < 15 (0-50); Potassium 4.6 mmol/L (3.4-5.1); Sodium 135 mmol/L (137-145)
[2023-07-01 16:27] LABS: TSH w/ Reflex to FT4 2.57 uIU/mL (0.47-4.68)
[2023-07-01 16:32] LABS: Ferritin 82 ng/mL (18-464)
[2023-07-01 16:46] LABS: Vitamin B12 315 pg/mL (239-931)
== END ==
PROVIDERS: PCP Family Medicine; Referring Provider Family Medicine; Visit Provider Family Medicine
DX: Z00.00 Encounter for general adult medical examination without abnormal findings; I48.0 Paroxysmal atrial fibrillation; G62.9 Polyneuropathy, unspecified; E03.9 Hypothyroidism, unspecified
CPT/HCPCS: 36415; 80048; 82607; 82728; 84443; 85025

== ENCOUNTER → 2023-08-18 09:47 | Outpatient (CLI) | payer MEDICARE, SELFPAY ==
--- NOTE | 2023-08-18 09:50 | DI.CT.S_ITS ---
PROCEDURE: CT CHEST ABD PEL W CON INDICATIONS: Bony lesion on pelvis TECHNIQUE: After the administration of intravenous contrast, 5 mm thick sections acquired from the lung apices to the symphysis. 5 mm coronal and sagittal reformats were performed. For radiation dose reduction, the following was used: automated exposure control, adjustment of mA and/or kV according to patient size. COMPARISON: [facility], MR, MR ABDOMEN WO/W CON, 06/26/2023, 15:18. FINDINGS: Image quality: Excellent. CHEST: Lower Neck: No enlarged lymph nodes. Thyroid: No thyroid nodules which require sonographic follow up, per consensus guidelines. Axillae: No enlarged lymph nodes. Chest Wall: Unremarkable. Lungs and Pleura: No pneumothorax or pleural effusions. Mild biapical pleural-parenchymal scarring. A 3 mm benign calcified nodule seen in the right upper lobe (95/5). No consolidation or suspicious nodules. Heart: Heart size is normal. No pericardial effusion. Thoracic Vessels: The aorta and pulmonary arteries demonstrate normal size. The left common carotid artery arises from the brachiocephalic trunk, a normal anatomical variant. Mediastinum and Arcelia: No enlarged lymph nodes. Esophagus: No wall thickening. Small hiatal hernia. ABDOMEN: Liver: No solid mass. A benign cyst is again seen in the left hepatic lobe. Gallbladder: Subtle radiolucent gallstone is seen without surrounding inflammatory changes. The Biliary ducts: No biliary dilation. Pancreas: No ductal dilation. Spleen: Size is within normal limits. Adrenal Glands: No adrenal nodules. Kidneys and Ureters: No hydronephrosis. No solid mass. No complex renal cystic lesion which requires follow up. There is a simple cyst at the inferior pole of the left kidney. Stomach and Bowel: Postsurgical changes are seen in the distal stomach. Multiple diverticula are seen in the colon without signs of acute diverticulitis. Moderate colonic stool. Peritoneum: No abnormal intraperitoneal fluid. No free air. Ventral Wall: No significant ventral hernia. Abdominal Nodes: No retroperitoneal or mesenteric adenopathy by size criteria. Vessels: Aorta and inferior vena cava are normal in size. PELVIS: Pelvic Organs: Prostate is mildly enlarged and contains coarse calcifications. Bladder: No bladder wall thickening, accounting for underdistention. Pelvic Nodes: No enlarged lymph nodes. Miscellaneous: No inguinal hernias are seen. Bones: No significant osseous abnormality is seen at the anterior left iliac bone corresponding to the area of increased DWI signal on the MRI from 06/26/2023. No aggressive osseous lesion. Mild degenerative changes are seen in the hips and spine. IMPRESSION: 1. No significant osseous abnormality is seen corresponding to the area of abnormal diffusion-weighted signal in the left iliac bone on the MRI from 06/26/2023, possibly artifactual on the prior exam. No aggressive osseous lesion is seen. 2. Postsurgical changes are seen in the stomach. No significant lymphadenopathy or signs of metastatic disease in the chest, abdomen, or pelvis. Approved by: Oj Franklin M.D. on 08/18/2023 at 12:26
[2023-08-18 10:27] LABS: BUN Creatinine Ratio 19.3 (6-22); Blood Urea Nitrogen 17 mg/dL (9-20); Estimated Glomerular Filt Rate > 60 mL/min (>60)
== END ==
PROVIDERS: PCP Family Medicine; Referring Provider Family Medicine; Visit Provider Family Medicine
DX: Z00.00 Encounter for general adult medical examination without abnormal findings (principal); M89.9 Disorder of bone, unspecified; R91.1 Solitary pulmonary nodule; K76.89 Other specified diseases of liver; K80.20 Calculus of gallbladder without cholecystitis without obstruction; N28.1 Cyst of kidney, acquired; K57.90 Diverticulosis of intestine, part unspecified, without perforation or abscess without bleeding; N40.0 Benign prostatic hyperplasia without lower urinary tract symptoms
CPT/HCPCS: 36415; 71260; 74177; 82565; 84520; Q9967

== ENCOUNTER → 2024-05-29 09:47 | Outpatient (CLI) | payer MEDICARE, SELFPAY ==
[2024-05-29 10:43] LABS: Alanine Aminotransferase 16 IU/L (<50); Albumin 3.6 g/dL (3.5-5.0); Albumin Globulin Ratio 1.4 (1.0-2.8); Alkaline Phosphatase 86 U/L (38-126); Aspartate Aminotransferase 24 IU/L (17-59); Blood Urea Nitrogen 15 mg/dL (9-20); Calcium 9.1 mg/dL (8.4-10.2); Carbon Dioxide 29 mmol/L (22-32); Chloride 102 mmol/L (98-107); Cholesterol 137 mg/dL (140-199); Estimated Glomerular Filt Rate > 60 mL/min (>60); Globulin 2.6 g/dL (1.7-4.1); Glucose 91 mg/dL (80-110); HDL Cholesterol 54 mg/dL (40-60); HEMOLYSIS < 15 (0-50); LDL Cholesterol Calculated 75 mg/dL (<100); Sodium 133 mmol/L (137-145); Total Protein 6.2 g/dL (6.3-8.2); Triglycerides 41 mg/dL (35-150)
[2024-05-31 16:11] LABS: Hep C Virus Ab w/Reflex Quant NEGATIVE s/c (NEGATIVE)
== END ==
PROVIDERS: PCP Family Medicine; Referring Provider Family Medicine; Visit Provider Family Medicine
DX: Z00.00 Encounter for general adult medical examination without abnormal findings (principal); G62.9 Polyneuropathy, unspecified
CPT/HCPCS: 36415; 80053; 80061; 86803

== ENCOUNTER → 2024-06-08 15:41 | Outpatient (CLI) | payer MEDICARE, SELFPAY ==
--- NOTE | 2024-06-08 16:30 | DI.MRI.S_ITS ---
PROCEDURE: MR LUMBAR SPINE WO CON INDICATIONS: LBP with neuropathy TECHNIQUE: Noncontrast sagittal T1 spin echo and T2 fast echo, sagittal STIR, and T2 fast spin echo through the lumbar spine. In cases with scoliosis, additional coronal T2 fast spin echo may be performed. COMPARISON: None. FINDINGS: Alignment and Curvature: There is normal bony alignment. Bone Marrow: Marrow is of normal overall signal. No acute vertebral body compression fractures. Spinal Cord: Conus medullaris terminates at the L1 level. Visualized cord demonstrates normal signal and size. Paraspinous Soft Tissues: No paravertebral masses. T12-L1: Normal appearance. L1-L2: Normal appearance. L2-L3: No central or foraminal stenosis L3-L4: Arthropathy. Moderate right and mild left foraminal stenosis. No central stenosis. L4-L5: Arthropathy. No central stenosis. No foraminal stenosis. L5-S1: Disc space narrowing. No central stenosis. Arthropathy. Moderate right and no left foraminal stenosis. IMPRESSION: Multilevel degenerative disc disease and arthropathy results in varying degrees of central and foraminal stenosis including moderate right foraminal stenosis L3-4 and L5-S1 Approved by: Tyrone Jacobson M.D. on 06/09/2024 at 16:43
== END ==
PROVIDERS: PCP Family Medicine; Referring Provider Family Medicine; Visit Provider Family Medicine
DX: M47.816 Spondylosis without myelopathy or radiculopathy, lumbar region (principal); M47.817 Spondylosis without myelopathy or radiculopathy, lumbosacral region; M48.061 Spinal stenosis, lumbar region without neurogenic claudication; M48.07 Spinal stenosis, lumbosacral region; M79.604 Pain in right leg; G62.9 Polyneuropathy, unspecified; M79.605 Pain in left leg
CPT/HCPCS: 72148

== ENCOUNTER → 2024-12-17 15:02 | Outpatient (CLI) | payer MEDICARE, SELFPAY ==
[2024-12-20 14:11] LABS: Fecal Immunochemical Test Negative (Negative)
== END ==
PROVIDERS: PCP Family Medicine; Referring Provider Family Medicine; Visit Provider Family Medicine
DX: Z12.11 Encounter for screening for malignant neoplasm of colon (principal)
CPT/HCPCS: 82274

== ENCOUNTER → 2025-04-20 10:42 | Outpatient (CLI) | payer MEDICARE, SELFPAY ==
--- NOTE | 2025-04-20 10:44 | DI.US.S_ITS ---
PROCEDURE: US HERNIA INDICATIONS: RIGHT VENTRAL LUMP TECHNIQUE: Real-time focused scanning was performed of the abdomen, with image documentation. COMPARISON: None. FINDINGS/IMPRESSION: Periumbilical hernia containing fat, which is partially reducible. The neck measures 8 x 6 mm. Dictated by: Gualberto Valera M.D. on 04/20/2025 at 17:44 Approved by: Gualberto Valera M.D. on 04/20/2025 at 17:45
== END ==
LOC: US 10:43
PROVIDERS: PCP Family Medicine; Referring Provider Family Medicine; Visit Provider Family Medicine
DX: K43.6 Other and unspecified ventral hernia with obstruction, without gangrene (principal)
CPT/HCPCS: 76705

== ENCOUNTER → 2025-05-26 14:45 | Outpatient (CLI) | payer MEDICARE, SELFPAY ==
[2025-05-26 15:11] LABS: Hematocrit 40.1 % (41-53); Hemoglobin 13.4 g/dL (13.5-17.5); Mean Corpuscular HGB Conc 33.4 % (30-36); Mean Corpuscular Hemoglobin 30.2 PG (26-34); Mean Corpuscular Volume 90.5 fL (80-100); Platelet Count 375 X10^3/uL (150-400)
[2025-05-26 15:47] LABS: Alanine Aminotransferase 17 IU/L (<50); Albumin 4.1 g/dL (3.5-5.0); Albumin Globulin Ratio 1.5 (1.0-2.8); Alkaline Phosphatase 86 U/L (38-126); Blood Urea Nitrogen 13 mg/dL (9-20); Calcium 9.3 mg/dL (8.4-10.2); Carbon Dioxide 29 mmol/L (22-32); Chloride 102 mmol/L (98-107); Cholesterol 145 mg/dL (140-199); Estimated Glomerular Filt Rate > 60 mL/min (>60); Globulin 2.8 g/dL (1.7-4.1); Glucose 88 mg/dL (70-99); HDL Cholesterol 67 mg/dL (40-60); HEMOLYSIS < 15 (0-50); Potassium 4.3 mmol/L (3.4-5.1); Sodium 139 mmol/L (137-145); Total Protein 6.9 g/dL (6.3-8.2); Triglycerides 57 mg/dL (35-150)
[2025-05-26 16:17] LABS: TSH w/ Reflex to FT4 1.89 uIU/mL (0.47-4.68)
== END ==
PROVIDERS: PCP Family Medicine; Referring Provider Family Medicine; Visit Provider Family Medicine
DX: Z00.00 Encounter for general adult medical examination without abnormal findings (principal); E03.9 Hypothyroidism, unspecified; I49.9 Cardiac arrhythmia, unspecified; R06.02 Shortness of breath
CPT/HCPCS: 36415; 80053; 80061; 84443; 85027

== ENCOUNTER 2025-06-14 06:17 | Day surgery (SDC) | payer MEDICARE, SELFPAY ==
[2025-05-25 09:23] VITALS: BMI 18.8
[2025-06-14] VITALS (7 sets, daily range): BP systolic 96–141; BP diastolic 51–63; PULSE 46–53; RESP 12–16; TEMP 36.5–36.6; O2SAT 97–100
--- NOTE | 2025-06-14 06:56 | PM.HP.IH.1 ---
History of Present Illness History of Present Illness Date Patient Seen: 06/14/25 Chief complaint: Ventral hernia repair w/poss mesh Narrative: Patient presents for ventral hernia repair today. [facility] Medical History (Updated 05/04/25 @ 10:41 by Thang Dominguez MD) Encounter for subsequent annual wellness visit (AWV) in Medicare patient Stromal tumor Sleep apnea (~2011) Allergies (~1945) Osteopenia (~2007) Mumps (~1952) Measles (~1953) Herpes (~1980) Chicken pox (~1951) Fecal incontinence (~2004) Low testosterone (~2003) Hypothyroidism (~2001) Cardiac arrhythmia (~2004) GI cancer (~2016) Paroxysmal A-fib Peripheral neuropathy Surgical History Anesthesia History of appendectomy (~02/1956) History of umbilical hernia repair History of cardiac radiofrequency ablation Gastrointestinal stromal tumor (GIST) (~11/14/20) Basal cell carcinoma (~1992) Family History Mother Cancer Diabetes mellitus Father Diabetes mellitus Congestive heart failure Stroke Grandfather Diabetes mellitus Grandfather Stroke Grandmother Hypertension Social History (Updated 05/26/25 @ 13:05 by Zahida Francis MA) marital status: number of children: 0 household members: spouse lives independently: Yes caregiver/support person: No pets and animals: No occupational status: previously employed current occupational exposures/hazards: No kimmy/temple: [place] special kimmy needs: No travel history: recent leisure activities: exercise, music and volunteer work water heater temp set < 120 deg: Yes working smoke detector in home: Yes fire extinguisher in home: Yes carbon monox detector in home: Yes firearms in home: No do you feel safe at home: Yes Smoking Status: Never smoker alcohol intake: former substance use type: does not use and former substance user during the past year weight has: remained stable well-balanced diet: about half the time daily servings fruits/ve-4 caffeine: No eating out: 1-3 times/week Type(s) of exercise: walking and irregular exercise frequency: 1-2 times per week duration: 30-45 minutes/day Meds Home Medications and Allergies Home Medications ?Medication ?Instructions ?Recorded ?Confirmed ?Type albuterol sulfate 90 mcg/actuation 1 - 2 inh inhalation Q4-6H PRN 03/02/25 06/14/25 Rx aerosol inhaler shortness of breath or wheezing #8.5 grams epinephrine 0.3 mg/0.3 mL 0.3 mg (0.3 mL) IM .COMPLEX #2 ea 03/02/25 06/14/25 Rx injection, auto-injector fluticasone propionate 50 2 spray intranasal DAILY PRN nasal 03/02/25 06/14/25 Rx mcg/actuation nasal congestion #16 grams spray,suspension (Flonase Allergy Relief) Allergies Allergy/AdvReac Type Severity Reaction Status Date / Time Latex, Natural Rubber Allergy Unknown Verified 06/14/25 06:40 gluten AdvReac Mild runnynose Verified 06/14/25 06:36 whey AdvReac Mild runnynose Verified 06/14/25 06:36 peanuts Allergy Severe Anaphylaxis Uncoded 06/14/25 06:36 black mold Allergy Intermediate SOB Uncoded 06/14/25 06:36 cat dander Allergy Mild Uncoded 06/14/25 06:36 house dust mite Allergy Mild Uncoded 06/14/25 06:36 pollens Allergy Mild Uncoded 06/14/25 06:36 Exam Narrative Exam Narrative: Const General: healthy appearing, comfortable and no acute distress Orientation: alert and oriented x3 HENMT Ears: hearing grossly normal bilaterally Eyes Visual Garcia: normal visual garcia by confrontation Conjunctivae: conjunctivae normal Sclera: sclerae normal EOM: EOM intact bilaterally Resp Effort & Inspection: normal respiratory effort and able to speak in complete sentences Cardio Rate: regular rate GI Palpation: soft (NT), +ventral midline hernia Extrem General: no pedal edema and no calf tenderness Assessment & Plan Assessment and plan (1) Ventral hernia: Qualifiers: Obstruction and gangrene presence: without obstruction or gangrene Qualified Code(s): K43.9 - Ventral hernia without obstruction or gangrene Status: Acute Plan Ventral hernia repair. The risks, benefits and options regarding the procedure were explained to the patient in detail. Risk discussion included but not limited to: bleeding, infection, recurrence. The patient was encouraged to ask questions and they were answered to their satisfaction. The patient understands and is agreeable to proceed. Time-Based Coding :: [TOTAL MINUTES] spent with patient and on the chart (including review of chart, obtaining history, exam, reviewing outside data, placing orders, documenting exam and treatment plan, and counseling patient) on [DATE]. PROFEE Director Online Marketing Document charge(s): Yes Charge Codes Inpatient/observation care including admit and discharge same day: [id number]
[2025-06-14] MEDS: LACTATED RINGERS 1,000 ML 42 ML IV (07:33)
--- NOTE | 2025-06-14 07:59 | SUR.OPER ---
Supine on padded OR bed, head on pillow, left arm padded and tucked, right arm secured on padded arm boards at <90 degrees abduction, legs uncrossed, safety belt at thigh, tape over blanket over lower legs.
[2025-06-14] MEDS: BUPivacaine 0.25% W/ EPI (PF) 30 ML VIAL 60 ML INJ (08:06)
--- NOTE | 2025-06-14 08:28 | PM.OP.1 ---
Operative Date/Time/Diagnoses Date of procedure: 06/14/25 Time of procedure: 08:28 Pre-op diagnosis: Ventral hernia Post-op diagnosis: same (Incisional hernia) Procedure & Clinicians Procedure: Ventral (incisional) hernia repair Same procedure(s) as scheduled: Yes Indications: 79yo M with midline ventral hernia Surgeon: Thang Dominguez Assisted?: No Anesthesia Type: MAC +/- Operative Notes Findings: Fat containing incisional hernia, 1cm defect, suture repair only, no mesh, to patient right of midline Closure Type: primary Specimen(s): none sent Applied: none Estimated Blood Loss (mL): 5 Blood products transfused: none Procedure in detail: After informed consent and satisfactory sedation, the abdomen was shaved, prepped and draped in the usual sterile manner. The patient received appropriate preoperative antibiotics and DVT prophylaxis. Surgical time-out was performed with all team members in agreement. We infiltrated the midline incision scar near the hernia with 0.25% Marcaine with epinephrine. We then did a field block around the subcutaneous tissues with local. The skin incision was made with a 15 blade continuing through the skin and subcutaneous tissues. The cautery was used to mobilize the subcutaneous tissue around the hernia. The hernia was noted to be a fat containing small sac and this was circumscribed down to the fascial level. The fascial defect was 1 cm so no mesh was indicated. I closed the fascial defect with 0 Ethibond interrupted pop-off suture with no resulting fascial defects. I injected additional local into the muscle fascia for postoperative analgesia. Hemostasis was excellent with cautery. I closed the subcutaneous plane using 3-0 Vicryl interrupted incorporating the fascia to obliterate the space. The skin incision was closed using 4-0 Monocryl in a subcuticular manner. Dermabond glue was applied as a final dressing. The estimated blood loss was minimal. The instrument sponge and needle counts were all correct x2. The patient tolerated the procedure well and was transported to the recovery area in stable condition. Complications: none Post-operative Condition: stable Disposition: PACU Plan for aftercare: PACU then home
== END 2025-06-14 09:30 | disposition home or self-care (01) ==
PROVIDERS: PCP Family Medicine; Referring Provider Surgery; Visit Provider Surgery
PROC: (CPT 49591; principal; 2025-06-14 07:45)
DX: K43.9 Ventral hernia without obstruction or gangrene (principal)
CPT/HCPCS: 49591; J0689; J1100; J2405; J2704; J3010; J7120